=== PATIENT | female | born 1975 | race Caucasian/White ===

== ENCOUNTER 2022-11-08 09:23 | Outpatient (CLI) | payer OTHER, SELFPAY | END 2022-11-08 09:24 | disposition home or self-care (01) | PROVIDERS: PCP Physician Assistant Medical; Visit Provider Physician Assistant Medical | DX: Z00.00 Encounter for general adult medical examination without abnormal findings (principal); D50.9 Iron deficiency anemia, unspecified; Z13.6 Encounter for screening for cardiovascular disorders | CPT/HCPCS: 80053; 80061; 84443 ==

== ENCOUNTER 2023-01-02 17:44 | Outpatient (CLI) | payer OTHER, SELFPAY ==
--- NOTE | 2023-01-02 18:00 | CRLHL7_ITS ---
For Patients: As a result of the Cures Act, medical imaging exams and procedure reports are released immediately into your electronic medical record. You may view this report before your referring provider. If you have questions, please contact your health care provider. BILATERAL DIGITAL SCREENING MAMMOGRAM WITH TOMOSYNTHESIS AND COMPUTER-AIDED DETECTION CLINICAL HISTORY: Routine screening exam. COMPARISON: No priors available. TECHNIQUE: Digital mammogram in CC and MLO projections including computer-aided detection (CAD). Tomosynthesis utilized. BREAST COMPOSITION: There are areas of scattered fibroglandular density. FINDINGS: RIGHT Breast: Right CC view does not contain enough posterior tissue. Right MLO view normal. LEFT Breast: No suspicious findings. IMPRESSION: RIGHT breast asymmetry/mass. RECOMMENDATIONS: Technical repeat-right CC 3D films. BI-RADS Category 0: Incomplete: Need Additional Imaging Evaluation and/or Prior Mammograms for Comparison The [facility] will contact the patient for follow-up. A lay language report of this examination will be provided to the patient. Dictated by Stan Velasco MD @ 01/15/2023 9:46:00 AM mauro/Dictated by: Stan Velasco MD @ 01/15/2023 9:46:00 AM ADDENDUM: Technical repeat mammogram, 01/17/2023 CLINICAL HISTORY: Technical repeat RIGHT CC. COMPARISON: Screening exam 01/02/2023. TECHNIQUE: Digital RIGHT CC 3D mammogram. BREAST COMPOSITION: There are areas of scattered fibroglandular density. FINDINGS: Repeat RIGHT CC 3D mammogram images submitted. Good technique with excellent visualization of the pectoralis muscle. No suspicious findings. IMPRESSION: Normal screening exam. RECOMMENDATIONS: Annual BILATERAL screening mammography. BI-RADS Category 1: Negative A lay language report of this examination will be provided to the patient. Dictated by: Stan Velasco MD @01/17/2023 12:45:32 PM / CRL:mauro (Electronically Signed)
== END 2023-01-02 17:45 | disposition home or self-care (01) ==
LOC: MAMMO 17:44
PROVIDERS: PCP Physician Assistant Medical; Visit Provider Physician Assistant Medical
DX: Z12.31 Encounter for screening mammogram for malignant neoplasm of breast (principal)
CPT/HCPCS: 77063; 77067

== ENCOUNTER 2024-01-04 14:43 | Outpatient (CLI) | payer OTHER, SELFPAY ==
--- NOTE | 2024-01-04 15:00 | MM_ITS ---
Patient: AMY UMAÑA Facility:?[facility] Patient ID:?[id number] Site Patient ID:?[id number]. Site :?[id number] Study:?XRay-Breast Bilateral 3D W/CAD-01/04/2024 3:07:52 PM Ordering Physician:Dyan Final Report: BILATERAL DIGITAL SCREENING MAMMOGRAM WITH TOMOSYNTHESIS AND COMPUTER-AIDED DETECTION CLINICAL HISTORY: Routine screening exam. COMPARISON: 01/02/2023. TECHNIQUE: Digital mammogram in CC and MLO projections including computer-aided detection (CAD). Tomosynthesis utilized. BREAST COMPOSITION: The breasts are heterogeneously dense, which may obscure small masses. FINDINGS: RIGHT Breast: No suspicious findings. LEFT Breast: Focal asymmetric density lower outer quadrant 4 cm from the nipple. IMPRESSION: LEFT breast asymmetry/mass. RECOMMENDATIONS: Additional mammographic views of the LEFT breast including 3D spot compression CC/MLO. LEFT breast ultrasound may also be required. BI-RADS Category 0: Incomplete: Need Additional Imaging Evaluation and/or Prior Mammograms for Comparison The [facility] will contact the patient for follow-up. A lay language report of this examination will be provided to the patient. Dictated by Stan Velasco MD @ 01/10/2024 10:02:08 AM jj/Dictated by: Stan Velasco MD @ 01/10/2024 10:02:00 AM Signed by:?Stan Velasco MD @01/10/2024 12:58:31 PM (Electronic Signature)
== END 2024-01-04 14:44 | disposition home or self-care (01) ==
LOC: MAMMO 14:45
PROVIDERS: PCP Physician Assistant Medical; Visit Provider Physician Assistant Medical
DX: Z12.31 Encounter for screening mammogram for malignant neoplasm of breast (principal); N63.20 Unspecified lump in the left breast, unspecified quadrant
CPT/HCPCS: 77063; 77067

== ENCOUNTER 2024-01-23 07:25 | Outpatient (CLI) | payer OTHER, SELFPAY ==
--- NOTE | 2024-01-23 07:45 | MM_ITS ---
Patient: AMY UMAÑA Facility:?[facility] Patient ID:?[id number] Site Patient ID:?[id number] Site :?[id number] Study:?XRay-Breast Left 3D W/CAD-01/23/2024 8:33:35 AM Ordering Physician:?Tracy Conley Final Report: DIGITAL DIAGNOSTIC LEFT MAMMOGRAM USING TOMOSYNTHESIS AND COMPUTER-AIDED DETECTION LEFT BREAST ULTRASOUND CLINICAL HISTORY: LEFT breast mass/asymmetry. COMPARISON: 01/02/2023, 01/04/2024. TECHNIQUE: Digital LEFT mammogram in two projections with computer-aided detection. Tomosynthesis was used in this interpretation. Real-time ultrasound imaging of LEFT breast with imaging documentation. BREAST COMPOSITION: There are areas of scattered fibroglandular density. FINDINGS: 3D spot compression CC/MLO LEFT breast mammogram images submitted. Persistent nodular density within the lateral aspect of the LEFT breast without architectural distortion. No adenopathy or suspicious calcifications. Targeted LEFT breast ultrasound performed at 4 o`clock 5 cm from the nipple. In this location, there is a cluster of cysts measuring 7 x 2 x 5 millimeters. No suspicious findings. IMPRESSION: Benign clustered microcysts LEFT breast 4 o`clock 5 cm from the nipple measuring 7 x 2 x 5 millimeters. No suspicious findings. No evidence of malignancy. RECOMMENDATIONS: Annual bilateral screening mammography. BI-RADS Category 2: Benign A lay language report of this examination will be provided to the patient. Dictated by Stan Velasco MD @ 01/23/2024 8:49:46 AM jj/Dictated by: Stan Velasco MD @ 01/23/2024 8:49:00 AM Signed by:?Stan Velasco MD @01/23/2024 12:02:17 PM (Electronic Signature)
--- NOTE | 2024-01-23 08:15 | US_ITS ---
Patient: AMY UMAÑA Facility:?[facility] Patient ID:?[id number] Site Patient ID:?[id number] Site :?[id number] Study:?US-Breast Left DSM TO READ-01/23/2024 8:09:40 AM Ordering Physician:ELSIE ROGERS Final Report: PLEASE SEE DIGITAL DIAGNOSTIC LEFT MAMMOGRAM PERFORMED SAME DAY CRL:mauro wade/Dictated by: Stan Velasco MD @ 01/23/2024 8:49:00 AM Signed by:?Stan Velasco MD @01/23/2024 12:02:14 PM (Electronic Signature)
== END 2024-01-23 07:26 | disposition home or self-care (01) ==
LOC: MAMMO 07:25
PROVIDERS: PCP Physician Assistant Medical; Visit Provider Physician Assistant Medical
DX: N63.20 Unspecified lump in the left breast, unspecified quadrant (principal); R92.8 Other abnormal and inconclusive findings on diagnostic imaging of breast
CPT/HCPCS: 76642; 77065; G0279

== ENCOUNTER 2025-01-23 15:08 | Outpatient (CLI) | payer BC, SELFPAY ==
--- NOTE | 2025-01-23 15:20 | CRLHL7_ITS ---
For Patients: As a result of the Century Cures Act, medical imaging exams and procedure reports are released immediately into your electronic medical record. You may view this report before your referring provider. If you have questions, please contact your health care provider. BILATERAL DIGITAL SCREENING MAMMOGRAM WITH COMPUTER-AIDED DETECTION AND TOMOSYNTHESIS CLINICAL HISTORY: : Routine screening exam. COMPARISON: 01/04/24, 01/02/2023 DIAGNOSTIC PRIORS 01/23/2024 TECHNIQUE: Digital mammogram in CC and MLO projections including computer-aided detection (CAD). Tomosynthesis was used in this interpretation. BREAST COMPOSITION: There are scattered areas of fibroglandular density. FINDINGS: RIGHT Breast: No suspicious findings LEFT Breast: Persistent nodular density within the lower outer quadrant 4 cm from the nipple. This has been previously evaluated with diagnostic mammography and ultrasound where a cluster of microcysts was noted at 4 o`clock 5 cm from the nipple. Because this area persists, a repeat diagnostic evaluation is recommended. IMPRESSION: LEFT breast asymmetry/mass. RECOMMENDATIONS: Additional mammographic views of the LEFT breast including 3D spot compression CC/MLO. LEFT breast ultrasound may also be required. The [facility] will contact the patient. A lay language report of this examination will be provided to the patient. BI-RADS Category 0: Incomplete: Need Additional Imaging Evaluation Dictated by Stan Velasco MD @ 01/27/2025 9:08:17 AM Dictated by: Stan Velasco MD @ 01/27/2025 09:08:24 (Electronically Signed)
== END 2025-01-23 15:09 | disposition home or self-care (01) ==
LOC: MAMMO 15:09
PROVIDERS: PCP Physician Assistant Medical; Visit Provider Physician Assistant Medical
DX: Z12.31 Encounter for screening mammogram for malignant neoplasm of breast (principal); N63.20 Unspecified lump in the left breast, unspecified quadrant
CPT/HCPCS: 77063; 77067

== ENCOUNTER 2025-02-13 08:28 | Outpatient (CLI) | payer BC, SELFPAY ==
--- NOTE | 2025-02-13 08:45 | CRLHL7_ITS ---
For Patients: As a result of the Cures Act, medical imaging exams and procedure reports are released immediately into your electronic medical record. You may view this report before your referring provider. If you have questions, please contact your health care provider. LEFT DIGITAL DIAGNOSTIC MAMMOGRAM WITH TOMOSYNTHESIS, 02/13/2025 LEFT BREAST ULTRASOUND, 02/13/2025 CLINICAL HISTORY: LEFT breast mass/asymmetry. COMPARISON: PRIORS 01/23/2025, 01/23/2024, 01/02/2023 DIAGNOSTIC PRIORS 01/04/2024 TECHNIQUE: Digital LEFT mammogram in two projections. Tomosynthesis was used in this interpretation. Real-time ultrasound imaging of LEFT breast with imaging documentation. BREAST COMPOSITION: There are scattered areas of fibroglandular density. FINDINGS: 3D spot compression CC/MLO LEFT breast mammogram images submitted. Decreased conspicuity of the previously noted asymmetric density on the spot compression CC view. No architectural distortion or suspicious calcifications. Targeted LEFT breast ultrasound performed at 4 o`clock 4 cm from the nipple. Normal fibroglandular tissue is present. No fibrocystic change or mass. IMPRESSION: No suspicious findings. No evidence of malignancy. RECOMMENDATIONS: Routine screening mammography. A lay language report of this examination will be provided to the patient. BI-RADS Category 2. Benign Dictated by Stan Velasco MD @ 02/13/2025 10:22:35 AM/CRL:josé PATEL/Dictated by: Stan Velasco MD @ 02/13/2025 10:22:00 AM (Electronically Signed)
--- NOTE | 2025-02-13 09:15 | CRLHL7_ITS ---
For Patients: As a result of the Century Cures Act, medical imaging exams and procedure reports are released immediately into your electronic medical record. You may view this report before your referring provider. If you have questions, please contact your health care provider. PLEASE SEE MAMMOGRAM ENTRY FOR ULTRASOUND REPORT JR/Dictated by: Stan Velasco MD @ 02/13/2025 10:22:00 AM (Electronically Signed)
== END 2025-02-13 08:29 | disposition home or self-care (01) ==
LOC: MAMMO 08:29
PROVIDERS: PCP Physician Assistant Medical; Visit Provider Physician Assistant Medical
DX: N63.20 Unspecified lump in the left breast, unspecified quadrant (principal); R92.8 Other abnormal and inconclusive findings on diagnostic imaging of breast
CPT/HCPCS: 76642; 77065; G0279

== ENCOUNTER 2025-06-23 07:33 | Outpatient (CLI) | payer BC, SELFPAY ==
[2025-06-26 10:16] LABS: HPV Source Cervical/Vag
[2025-06-29 08:59] LABS: Pap Test Digital Imaging Done
== END 2025-06-23 07:34 | disposition home or self-care (01) ==
PROVIDERS: PCP Physician Assistant Medical; Visit Provider Physician Assistant Medical
DX: Z01.419 Encounter for gynecological examination (general) (routine) without abnormal findings (principal); Z00.00 Encounter for general adult medical examination without abnormal findings
CPT/HCPCS: 80053; 80061; 84443; 87624; 87625; 88141; 88142; 88175

== ENCOUNTER 2025-08-20 06:20 | Outpatient (CLI) | payer BC, SELFPAY ==
--- NOTE | 2025-08-20 08:07 | P.ANES_ITS ---
Anesthesia Charges Start Date/Time Anesthesia Start Date: 08/20/25 Anesthesia Start Time: 07:11 Stop Date/Time Anesthesia Stop Date: 08/20/25 Anesthesia Stop Time: 08:00 Coding CPT Codes CPT Codes: ANES LWR INTST NDND NOS - 93525 ([id number]) P1 - NORMAL HEALTHY PATIENT, QK - OPERATIVE SUPERVISOR 2-4 CNCRNT ANES PROC
--- NOTE | 2025-08-20 08:07 | W.ANESCHARGE ---
Anesthesia Charges Start Date/Time Anesthesia Start Date: 08/20/25 Anesthesia Start Time: 07:11 Stop Date/Time Anesthesia Stop Date: 08/20/25 Anesthesia Stop Time: 08:00 Coding CPT Codes CPT Codes: ANES LWR INTST NDMD NOS - 37461 ([id number]) P1 - NORMAL HEALTHY PATIENT, QK - NET COORDINATOR 2-4 CNCRNT ANES PROC
--- NOTE | 2025-08-20 10:23 | P.ANES_ITS ---
Anesthesia Charges Start Date/Time Anesthesia Start Date: 08/20/25 Anesthesia Start Time: 07:11 Stop Date/Time Anesthesia Stop Date: 08/20/25 Anesthesia Stop Time: 08:00 Coding CPT Codes CPT Codes: ADELA LWR INTST NDND NOS - 62678 ([id number]) P1 - NORMAL HEALTHY PATIENT, QK - WINDOWS CONSULTANT 2-4 CNCRNT ANES PROC, QX - ORNAMENTAL IRON ERECTOR SVC W/ MED DIRECTION
--- NOTE | 2025-08-20 10:23 | W.ANESCHARGE ---
Anesthesia Charges Start Date/Time Anesthesia Start Date: 08/20/25 Anesthesia Start Time: 07:11 Stop Date/Time Anesthesia Stop Date: 08/20/25 Anesthesia Stop Time: 08:00 Coding CPT Codes CPT Codes: ADELA LWR INTST NDGA NOS - 70060 ([id number]) P1 - NORMAL HEALTHY PATIENT, QK - LEVEL VIAL INSIDE GRINDER 2-4 CNCRNT ANES PROC, QX - PRODUCTION DIRECTOR SVC W/ MED DIRECTION
== END 2025-08-20 06:21 | disposition home or self-care (01) ==
LOC: OP CLINIC 06:21
PROVIDERS: PCP Physician Assistant Medical; Visit Provider Surgery
DX: Z12.11 Encounter for screening for malignant neoplasm of colon (principal); D12.3 Benign neoplasm of transverse colon; Z83.719 Family history of colon polyps, unspecified
CPT/HCPCS: 00811; 00812; 45381; 45385; J2704